=== PATIENT | male | born 1990 | race Caucasian/White ===

== ENCOUNTER 2022-02-14 19:24 | Emergency (ER) | payer MEDICAID ==
[~2022-02-14] VITALS: Ht 185.4 cm; Wt 113.6 kg
[2022-02-14 20:01] LABS: CLARITY,URINE CLEAR (Clear); COLOR,URINE YELLOW (Yellow); GLUCOSE, URINE NEGATIVE (Neg); KETONES,URINE NEGATIVE (Neg); LEUKOCYTE ESTERASE ,URINE NEGATIVE (Neg); NITRITES, URINE NEGATIVE (Neg); OCCULT BLOOD,URINE NEGATIVE (Neg); PH,URINE 5.5 (4.8-8.0); PROTEIN,URINE NEGATIVE (Neg); UROBILINOGEN,URINE 0.2 E.U/dL (0.2-1.0)
[2022-02-14 20:03] LABS: UA COLLECTION TYPE CLN CATCH MIDSTREAM
[2022-02-14 20:09] LABS: BASOPHILS # (AUTO) 0.1 X10'3 (0-0.2); BASOPHILS % (AUTO) 0.5 % (0-1); EOSINOPHILS # (AUTO) 0.6 X10'3 (0-0.9); HEMATOCRIT 42.6 % (42.0-52.0); HEMOGLOBIN 14.7 g/dl (14.0-17.9); LYMPHOCYTES # (AUTO) 2.3 X10'3 (1.1-4.8); MEAN CORPUSCULAR HEMOGLOBIN 29.1 PG (27.0-31.0); MEAN CORPUSCULAR HGB CONC 34.6 g/dL (33.0-36.5); MEAN CORPUSCULAR VOLUME 84.2 FL (78-98); MEAN PLATELET VOLUME 7.4 FL (7.4-10.4); MONOCYTES % (AUTO) 4.8 % (2-12); NEUTROPHILS # (AUTO) 16.8 X10'3 (1.8-7.7); NEUTROPHILS % (AUTO) 80.7 % (42-75); PLATELET COUNT 364 X10'3 (140-440); RED BLOOD COUNT 5.06 X10'6 (4.70-6.10); RED CELL DISTRIBUTION WIDTH 12.8 % (11.5-14.5); WHITE BLOOD COUNT 20.8 X10'3 (4.5-11.0)
[2022-02-14 20:27] LABS: ALANINE AMINOTRANSFERASE 84 U/L (12-78); ALBUMIN 4.2 G/DL (3.4-5.0); ALBUMIN/GLOBULIN RATIO 1.1 (1.1-1.5); ALKALINE PHOSPHATASE 88 IU/L (46-116); ANION GAP 13 (8-16); ASPARTATE AMINO TRANSFERASE 26 U/L (10-37); BILIRUBIN,TOTAL 0.7 MG/DL (0.1-1.0); BLOOD UREA NITROGEN 16 MG/DL (7-18); BUN/CREATININE RATIO 13.3 (5.4-32.0); CHLORIDE 101 MMOL/L (99-107); GLUCOSE 102 MG/DL (70-104); POTASSIUM 3.6 MMOL/L (3.5-5.1); SODIUM 136 MMOL/L (135-145); TOTAL CARBON DIOXIDE 21.9 MMOL/L (24-32); eGFR 70 ML/MIN
[2022-02-14 21:48] LABS: PLATELET ESTIMATE NORMAL; TOTAL CELLS COUNTED 100
--- NOTE | 2022-02-14 22:11 | NUR ---
PT STATES HE HAD A FEVER OF 102 THIS AFTERNOON AND TOOK TYLENOL. TEMPERATURE HERE IS 98.4
[2022-02-14 23:22] VITALS: BP 152/95
[2022-02-14] MEDS ORDERED: ibuprofen tablet 400 MG TABLET PO ONE (23:25)
[2022-02-14] MEDS ORDERED: SULF1TAB49 PO (23:43)
[2022-02-14] MEDS ORDERED: sulfamethoxazole/trimethoprim DS (800/160mg) tablet PO ONE (23:45)
== END 2022-02-14 23:57 | disposition home or self-care (01) ==
LOC: ER 19:25
DX: D72.829 Elevated white blood cell count, unspecified (principal); G43.909 Migraine, unspecified, not intractable, without status migrainosus; Z79.899 Other long term (current) drug therapy
CPT/HCPCS: 36415; 71045; 74176; 80053; 81003; 83605; 84145; 85007; 85025; 87040; 99285

== ENCOUNTER → 2022-02-14 | Emergency (ER) | payer MEDICAID ==
[~2022-02-14] MED LIST: SULF1TAB49 PO
== END | disposition left against medical advice (07) ==
LOC: ER 17:52
DX: R50.9 Fever, unspecified (principal); Z53.21 Procedure and treatment not carried out due to patient leaving prior to being seen by health care provider